=== PATIENT | female | born 1965 | race Caucasian/White ===

== ENCOUNTER 2017-01-04 08:53 | Emergency (ER) | payer OTHER ==
[~2017-01-04] VITALS: Ht 165.1 cm; Wt 88.9 kg
[~2017-01-04 08:53] MED LIST: AMBI5TAB PO; HYOS0.129 PO; LORA-392 PO; PANT40TA3 PO; SUCR1S PO; WELLTAB39 PO
[2017-01-04 08:56] VITALS: BP 165/90; PULSE 62; RESP 16; TEMP 98.3; O2SAT 97
[2017-01-04] MEDS ORDERED: TRAM50TA PO (09:06)
--- NOTE | 2017-01-04 09:26 | PD ---
HPI Chief Complaint: Pain: Acute or Chronic Time Seen by Provider: 08:59 Travel History International Travel<30 days: No Contact w/Intl Traveler<30days: No Traveled to known affect area: No History of Present Illness HPI 51 year old female presenting with burning right foot and ankle pain for 1 week. 3 weeks ago she was barefoot and stepped on a rock, which gave her right heel pain. She had an x-ray at the time excluding fracture. The heel pain resolved. Starting 1 week ago she began having lateral right foot and ankle pain. The pain is worse when she initially gets up to walk after sitting for a prolonged period of time. She is able to bear weight and walk. Associated symptoms include mild swelling in the morning. She denies fever, chills, rash, or other trauma to the area. She is taking Tramadol for pain relief. PFSH Past Medical History Hx Anticoagulant Therapy: No Anxiety: Yes Depression: Yes Cancer: No Cardiovascular Problems: No Diabetes: No Diverticulitis: Yes Endocrine: No GERD: Yes Genitourinary: No Immune Disorder: No Musculoskeletal: No Neurologic: No Psychiatric: Yes Reproductive: No Respiratory: No Tetanus Vaccination: < 5 Years Influenza Vaccination: Yes ?: Not Menopausal: Yes : 3 Para: 3 Past Surgical History Abdominal Surgery: Yes (GASTRIC BYPASS) Section: Yes (x3) Other Surgery: Yes (gastric bypass surgery 2006) Social History Alcohol Use: Yes (occ) Tobacco Use: No Substance Use: No Allergies-Medications (Allergen,Severity, Reaction): Coded Allergies: No Known Allergies (Unverified , 01/04/17) Reported Meds & Prescriptions Reported Meds & Active Scripts Active Sucralfate Liq (Sucralfate) 1 Gm/10 Ml Shakila 1 Gm PO ACHS 30 Days Pantoprazole (Pantoprazole Sodium) 40 Mg Tab 40 Mg PO Q12HR 30 Days Ambien (Zolpidem Tartrate) 5 Mg Tab 5 Mg PO HS PRN Reported Tramadol (Tramadol HCl) 50 Mg Tab 100 Mg PO DIRECTED PRN Ativan (Lorazepam) 0.5 Mg Tab 0.25 Mg PO BID PRN Wellbutrin Xl 24 HR (Bupropion HCl) 300 Mg Tab 300 Mg PO DAILY Review of Systems Except as stated in HPI: all other systems reviewed are Neg General / Constitutional: No: Fever, Chills Musculoskeletal: Positive: Edema (mild right ankle swelling), Pain (right ankle and foot pain), No: Weakness Skin: No Rash Neurologic: No: Weakness Physical Exam Narrative GENERAL: Well nourished, well developed. SKIN: Warm and dry. HEAD: Atraumatic. Normocephalic. NECK: Trachea midline. No JVD. CARDIOVASCULAR: Regular rate and rhythm. RESPIRATORY: No accessory muscle use. Clear to auscultation. Breath sounds equal bilaterally. GASTROINTESTINAL: Abdomen soft, non-tender, nondistended. Hepatic and splenic margins not palpable. MUSCULOSKELETAL: Extremities without clubbing, cyanosis. No obvious deformities. Mild swelling over right lateral malleolus. Full range of motion in bilateral ankles. Tenderness to palpation over lateral malleolus and anterior talofibular ligament. No joint laxity. Remainder of the extremities are atraumatic. NEUROLOGICAL: Awake and alert. No obvious cranial nerve deficits. Motor grossly within normal limits. Five out of 5 muscle strength in the arms and legs. Normal speech. Data Data Last Documented VS Vital Signs Date Time Temp Pulse Resp B/P Pulse Ox O2 Delivery O2 Flow Rate FiO2 01/04/17 08:56 98.3 62 16 165/90 97 Orders Luis Bandage (01/04/17 09:26) MDM Medical Decision Making Medical Screen Exam Complete: Yes Emergency Medical Condition: Yes Differential Diagnosis Most likely right ankle sprain or strain Fracture considered but not likely clinically Narrative Course Patient roomed emergency department, at this time she is clinically excludable by [place] ankle rules. Further the patient is already had imaging is negative. She's been having pain for 3 weeks. Discussed that I degree ankle sprains may take several weeks to heal 6 maybe even 8 weeks. Discussed if her pain persists and is follow-up with a primary care physician for consideration of an MRI. Patient states she has an appointment with her primary care physician but states leaving on vacation 2 days later so she wanted to get checked today. Discussed with her there is no indication for emergent MRI at this time and she will likely require preauthorization. She verbalizes understanding and agreement. 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 I think is reasonable for her to return to work because she does not do any heavy lifting. Discussed symptomatic management with [facility] therapy and returned ED criteria. Diagnosis Primary Impression: Ankle sprain Patient Instructions: General Instructions, [facility]ICE Therapy (GEN) Additional Instructions: Call your primary care physician for an earlier appointment. Take Tylenol as needed for pain. Disposition: 01 DISCHARGE HOME Condition: Stable Alexi Luz MD Jan 04, 2017 09:26
== END 2017-01-04 09:51 | disposition home or self-care (01) ==
LOC: PHED 08:53
DX: S93.401D Sprain of unspecified ligament of right ankle, subsequent encounter (principal); Z86.59 Personal history of other mental and behavioral disorders; Z87.19 Personal history of other diseases of the digestive system; X58.XXXD Exposure to other specified factors, subsequent encounter
CPT/HCPCS: 99282

== ENCOUNTER 2017-10-14 06:21 | Observation (INO) | payer OTHER ==
[2017-10-14] VITALS (9 sets, daily range): BP systolic 118–164; BP diastolic 77–97; PULSE 57–98; RESP 16–20; TEMP 97.1–98.2; O2SAT 95–98
[~2017-10-14] VITALS: Ht 165.1 cm; Wt 87.3 kg
[~2017-10-14 06:21] MED LIST changes: -HYOS0.129 PO; +TRAM50TA PO
[2017-10-14] MEDS ORDERED: SODIUM CHLORIDE 0.9% FLUSH 10 ML FLUSH IVF PRN (06:45)
--- NOTE | 2017-10-14 06:47 | PD ---
HPI Chief Complaint: Palpitations Time Seen by Provider: 06:29 Travel History International Travel<30 days: No Contact w/Intl Traveler<30days: No Traveled to known affect area: No History of Present Illness HPI 52-year-old female with no significant past medical history other than depression presents to the emergency room complaining of palpitations that happens on and off for the last 4 weeks. This morning patient woke up with similar symptoms along with numbness in both arms and occasional headaches. Patient denies any shortness of breath, nausea, vomiting, abdominal pain, weakness, fever or chills. PFSH Past Medical History Hx Anticoagulant Therapy: No Anxiety: Yes Depression: Yes Cancer: No Cardiovascular Problems: No Diabetes: No Diverticulitis: Yes Endocrine: No GERD: Yes Genitourinary: No Immune Disorder: No Musculoskeletal: No Neurologic: No Psychiatric: Yes Reproductive: No Respiratory: No ?: Not Menopausal: Yes : 3 Para: 3 Past Surgical History Abdominal Surgery: Yes (GASTRIC BYPASS) Section: Yes (x3) Other Surgery: Yes (gastric bypass surgery 2006) Social History Alcohol Use: Yes (occ) Tobacco Use: No Substance Use: No Allergies-Medications (Allergen,Severity, Reaction): Coded Allergies: No Known Allergies (Unverified , 01/04/17) Reported Meds & Prescriptions Reported Meds & Active Scripts Active Sucralfate Liq (Sucralfate) 1 Gm/10 Ml Shakila 1 Gm PO ACHS 30 Days Pantoprazole (Pantoprazole Sodium) 40 Mg Tab 40 Mg PO Q12HR 30 Days Reported Ativan (Lorazepam) 0.5 Mg Tab 0.25 Mg PO BID PRN Wellbutrin Xl 24 HR (Bupropion HCl) 300 Mg Tab 300 Mg PO DAILY Review of Systems Except as stated in HPI: all other systems reviewed are Neg General / Constitutional: No: Fever, Chills Eyes: No: Blurred Vision, Redness, Pain HENT: No: Rhinorrhea, Congestion, Neck Stiffness, Neck Pain, Earache Cardiovascular: Positive: Palpitations Respiratory: No: Cough, Shortness of Breath, Wheezing Gastrointestinal: No: Nausea, Vomiting, Diarrhea, Abdominal Pain, Hematochezia , Constipation Genitourinary: No: Dysuria Musculoskeletal: No: Myalgias Skin: No Rash, No Hives Neurologic: Positive: Headache, Paresthesia Psychiatric: Positive: Anxiety, Depression Physical Exam Narrative Vital Signs Date Time Temp Pulse Resp B/P (MAP) Pulse Ox O2 Delivery O2 Flow Rate FiO2 10/14/17 06:30 92 16 144/91 (108) 97 10/14/17 06:25 98.2 98 18 134/83 (100) 95 GENERAL: Patient is alert and oriented -3 SKIN: Focused skin assessment warm/dry. HEAD: Atraumatic. Normocephalic. EYES: Pupils equal and round. No scleral icterus. No injection or drainage. ENT: No nasal bleeding or discharge. Mucous membranes pink and moist. NECK: Trachea midline. No JVD. CARDIOVASCULAR: Regular rate and rhythm. No murmur appreciated. RESPIRATORY: No accessory muscle use. Clear to auscultation. Breath sounds equal bilaterally. GASTROINTESTINAL: Abdomen soft, non-tender, nondistended. Hepatic and splenic margins not palpable. MUSCULOSKELETAL: No obvious deformities. No clubbing. No cyanosis. No edema. NEUROLOGICAL: Awake and alert. No obvious cranial nerve deficits. Motor grossly within normal limits. Normal speech. PSYCHIATRIC: Appropriate mood and affect; insight and judgment normal. Data Data Last Documented VS Vital Signs Date Time Temp Pulse Resp B/P (MAP) Pulse Ox O2 Delivery O2 Flow Rate FiO2 10/14/17 06:35 18 97 10/14/17 06:30 92 144/91 (108) 10/14/17 06:25 98.2 Orders Orders Electrocardiogram (10/14/17 ) Electrocardiogram (10/14/17 06:42) Basic Metabolic Panel (Bmp) (10/14/17 06:42) Ckmb (Isoenzyme) Profile (10/14/17 06:42) Complete Blood Count With Diff (10/14/17 06:42) Magnesium (Mg) (10/14/17 06:42) Prothrombin Time / Inr (Pt) (10/14/17 06:42) Act Partial Throm Time (Ptt) (10/14/17 06:42) Troponin I (10/14/17 06:42) Ecg Monitoring (10/14/17 06:42) Bilateral Bp Monitoring (10/14/17 06:42) Iv Access Insert/Monitor (10/14/17 06:42) Oximetry (10/14/17 06:42) Oxygen Administration (10/14/17 06:42) Sodium Chloride 0.9% Flush (Ns Flush) (10/14/17 06:45) Chest, Pa & Lat (10/14/17 06:42) Labs Laboratory Tests Test 10/14/17 06:45 [facility] Medical Decision Making Medical Screen Exam Complete: Yes Emergency Medical Condition: Yes Medical Record Reviewed: Yes Differential Diagnosis Anxiety, palpitations, electrolyte abnormalities, ACS, Narrative Course Patient will be signed out to the next physician Dr. Desouza to follow-up labs , chest x-ray, EKG and monitor the patient during the ER course. Diagnosis Primary Impression: Palpitations Leroy Christianson MD October 14, 2017 06:47
[2017-10-14 06:54] LABS: AUTOMATED NEUTROPHIL # 2.1 TH/MM3 (1.8-7.7); BASOPHIL # 0.1 TH/MM3 (0-0.2); BASOPHIL % 1.8 % (0.0-2.0); EOSINOPHIL # 0.2 TH/MM3 (0-0.4); HEMATOCRIT 38.2 % (35.0-46.0); HEMOGLOBIN 12.8 GM/DL (11.6-15.3); LYMPH % 41.6 % (9.0-44.0); LYMPHOCYTE # 1.8 TH/MM3 (1.0-4.8); MEAN CELL VOLUME 92.9 FL (80.0-100.0); MEAN CORPUSCULAR HEMOGLOBIN 31.1 PG (27.0-34.0); MEAN CORPUSCULAR HGB CONC 33.5 % (32.0-36.0); MONO % 4.4 % (0.0-8.0); MONOCYTE # 0.2 TH/MM3 (0-0.9); NEUT % 48.2 % (16.0-70.0); PLATELET COUNT 201 TH/MM3 (150-450); RED BLOOD COUNT 4.11 MIL/MM3 (4.00-5.30); RED CELL DISTRIBUTION WIDTH 12.6 % (11.6-17.2); WHITE BLOOD COUNT 4.4 TH/MM3 (4.0-11.0)
--- NOTE | 2017-10-14 07:10 | RADRPT ---
EXAM DATE/TIME: 10/14/2017 06:50 [facility] COMPARISON: No previous studies available for comparison. INDICATIONS : Chest pain. MEDICAL HISTORY : None. SURGICAL HISTORY : None. ENCOUNTER: Initial ACUITY: 1 day PAIN SCORE: 6/10 LOCATION: Bilateral chest FINDINGS: PA and lateral views of the chest demonstrate the lungs to be symmetrically aerated without evidence of mass, infiltrate or effusion. The cardiomediastinal contours are unremarkable. Osseous structure s are intact. CONCLUSION: No acute disease. Pastor Dotson MD on October 14, 2017 at 7:08 Board Certified Radiologist. This report was verified electronically.
[2017-10-14 07:15] LABS: PROTHROMBIN TIME - PATIENT 10.3 SEC (9.8-11.6)
[2017-10-14 07:17] LABS: CHLORIDE 109 MEQ/L (98-107); SODIUM (NA) 141 MEQ/L (136-145)
[2017-10-14 07:19] LABS: CALCIUM 8.6 MG/DL (8.5-10.1)
[2017-10-14 07:20] LABS: BICARBONATE 26.5 MEQ/L (21.0-32.0); BLOOD UREA NITROGEN 11 MG/DL (7-18); GLUCOSE,RANDOM 126 MG/DL (74-106)
[2017-10-14 07:23] LABS: CREATININE 0.68 MG/DL (0.50-1.00); GLOMERULAR FILTRATION RATE 92 ML/MIN (>89)
[2017-10-14 07:28] LABS: TROPONIN I LESS THAN 0.02 NG/ML (0.02-0.05)
--- NOTE | 2017-10-14 07:33 | PD ---
Data Data Last Documented VS Vital Signs Date Time Temp Pulse Resp B/P (MAP) Pulse Ox O2 Delivery O2 Flow Rate FiO2 10/14/17 07:03 132/85 (101) 118/77 (91) 10/14/17 06:55 97 Room Air 10/14/17 06:55 16 10/14/17 06:55 76 10/14/17 06:25 98.2 Orders Orders Electrocardiogram (10/14/17 ) Basic Metabolic Panel (Bmp) (10/14/17 06:42) Ckmb (Isoenzyme) Profile (10/14/17 06:42) Complete Blood Count With Diff (10/14/17 06:42) Magnesium (Mg) (10/14/17 06:42) Prothrombin Time / Inr (Pt) (10/14/17 06:42) Act Partial Throm Time (Ptt) (10/14/17 06:42) Troponin I (10/14/17 06:42) Ecg Monitoring (10/14/17 06:42) Bilateral Bp Monitoring (10/14/17 06:42) Iv Access Insert/Monitor (10/14/17 06:42) Oximetry (10/14/17 06:42) Oxygen Administration (10/14/17 06:42) Sodium Chloride 0.9% Flush (Ns Flush) (10/14/17 06:45) Chest, Pa & Lat (10/14/17 06:42) CKMB (10/14/17 06:45) CKMB% (10/14/17 06:45) Clindamycin (Cleocin) (10/14/17 08:00) Admit Order (Ed Use Only) (10/14/17 ) Truck Driver Rubbish Collector / Telemetry FERDINAND.Q8H (10/14/17 08:07) Vital Signs (Adult) Q4H (10/14/17 08:07) Diet Npo (10/14/17 Breakfast) Activity Bed Rest (10/14/17 08:07) Notify Dr: Other (10/14/17 08:07) Labs Laboratory Tests Test 10/14/17 06:45 White Blood Count 4.4 TH/MM3 Red Blood Count 4.11 MIL/MM3 Hemoglobin 12.8 GM/DL Hematocrit 38.2 % Mean Corpuscular Volume 92.9 FL Mean Corpuscular Hemoglobin 31.1 PG Mean Corpuscular Hemoglobin Concent 33.5 % Red Cell Distribution Width 12.6 % Platelet Count 201 TH/MM3 Mean Platelet Volume 8.0 FL Neutrophils (%) (Auto) 48.2 % Lymphocytes (%) (Auto) 41.6 % Monocytes (%) (Auto) 4.4 % Eosinophils (%) (Auto) 4.0 % Basophils (%) (Auto) 1.8 % Neutrophils # (Auto) 2.1 TH/MM3 Lymphocytes # (Auto) 1.8 TH/MM3 Monocytes # (Auto) 0.2 TH/MM3 Eosinophils # (Auto) 0.2 TH/MM3 Basophils # (Auto) 0.1 TH/MM3 CBC Comment DIFF FINAL Differential Comment Prothrombin Time 10.3 SEC Prothromb Time International Ratio 1.0 RATIO Activated Partial Thromboplast Time 24.0 SEC Blood Urea Nitrogen 11 MG/DL Creatinine 0.68 MG/DL Random Glucose 126 MG/DL Calcium Level 8.6 MG/DL Magnesium Level 2.0 MG/DL Sodium Level 141 MEQ/L Potassium Level 5.1 MEQ/L Chloride Level 109 MEQ/L Carbon Dioxide Level 26.5 MEQ/L Anion Gap 6 MEQ/L Estimat Glomerular Filtration Rate 92 ML/MIN Total Creatine Kinase 231 U/L Creatine Kinase MB 2.9 NG/ML Creatine Kinase MB % 1.3 % Troponin I LESS THAN 0.02 NG/ML [facility] Medical Record Reviewed: Yes Supervised Visit with ADIEL: No Narrative Course CBC & BMP Diagram 10/14/17 06:45 Calcium Level 8.6, Magnesium Level 2.0 Last Impressions Chest X-Ray 10/14/17 0642 Signed Impressions: Service Date/Time: Saturday, October 14, 2017 06:50 - CONCLUSION: No acute disease. Pastor Dotson MD Presentation is concerning for anginal equivalent and a stress test is considered most in keeping with the current guidelines. Discussed with Dr. Ramirez. Upon reviewing the blood pressures on record here we have about 15 measurements with a systolic and diastolic hypertension dating back a few years prior. Patient has seen her primary care provider, via an INTERIOR DESIGN COORDINATOR, and has not received antihypertensives. 5 mg amlodipine daily prescription prescribed for the patient by the undersigned. Diagnosis Primary Impression: Palpitations Additional Impressions: Anginal equivalent Hypertension Qualified Codes: I10 - Essential (primary) hypertension Admitting Information Admitting Physician Requests: Observation Scripts Amlodipine (Amlodipine) 5 Mg Tab 5 MG PO DAILY for Blood Pressure Management, #30 TAB 0 Refills Prov: Tom Desouza MD 10/14/17 Tom Desouza MD October 14, 2017 07:32
[2017-10-14] MEDS ORDERED: CLINDAMYCIN 150 MG CAP PO ONE (08:00)
[2017-10-14] MEDS ORDERED: AMLO5TAB2 PO ×2 (08:11→15:33)
[2017-10-14] MEDS ORDERED: ACETAMINOPHEN 500 MG CPLT PO PRN (08:45)
[2017-10-14] MEDS ORDERED: MORPHINE SULFATE 4 MG/ML INJ IV PUSH PRN (08:45)
[2017-10-14] MEDS ORDERED: SODIUM CHLORIDE 0.9% FLUSH 10 ML FLUSH IV FLUSH PRN (08:45)
[2017-10-14] MEDS ORDERED: NITROGLYCERIN 0.4 MG SL 25 TABS/BTL SL PRN (08:45)
[2017-10-14] MEDS ORDERED: ASPIRIN 325 MG TAB PO SCH (09:00)
[2017-10-14] MEDS ORDERED: SODIUM CHLORIDE 0.9% FLUSH 10 ML FLUSH IV FLUSH SCH (09:00)
[2017-10-14] MEDS ORDERED: ENOXAPARIN SODIUM 30 MG/0.3 ML SYRINGE SQ SCH (10:00)
[2017-10-14 10:50] LABS: TROPONIN I LESS THAN 0.02 NG/ML (0.02-0.05)
[2017-10-14] MEDS ORDERED: SODIUM CHLOR 0.9% 1000 ML INJ 1,000 ML IV SCH (11:00)
--- NOTE | 2017-10-14 11:40 | HHI.HP ---
HPI Service [facility] Primary Care Physician Racquel Beach MD Admission Diagnosis Anginal Equivalents; HTN Diagnoses: (1) Chest pain (2) Palpitations Chief Complaint: Chest pain Travel History International Travel<30 Days: No Contact w/Intl Traveler <30 Da: No Traveled to Known Affected Are: No History of Present Illness This is a 52-year-old female patient with a known medical history of hypertension and GERD who presented to the ED with complaints of chest pain and bilateral arm numbness. Patient states she woke up in the middle the night feeling like her heart was racing and associated bilateral upper extremity numbness. Patient does state that she has been having the symptoms for roughly 3 months now almost on a daily basis, they come and go with no known aggravating or relieving factors. Patient denies any associated nausea, vomiting, diaphoresis or shortness of breath with these episodes. She does state that she took her blood pressure and it was mildly elevated with a systolic in the 140s and diastolic over 100s. Patient denies any recent illness including fever, chills, cough, headaches, shortness of breath, abdominal pain, nausea, vomiting, diarrhea dysuria. Family medical history significant for mother having an DC and need for CABG in her 60s. Patient did see her primary care doctor within the last month, blood work was performed which was reportedly unremarkable. Patient's blood pressure was mildly elevated but was not placed on any hypertensive medications at the time. Lipid panel was reportedly unremarkable as well. Patient works as a [employer], states that she has increased stress and a physically demanding work environment. Review of Systems Constitutional: DENIES: Fever, Chills Eyes: DENIES: Diplopia Respiratory: DENIES: Cough Cardiovascular: COMPLAINS OF: Chest pain, Palpitations Gastrointestinal: DENIES: Abdominal pain, Black stools, Bloody stools, Constipation, Diarrhea, Nausea, Vomiting Musculoskeletal: DENIES: Joint pain Hematologic/lymphatic: DENIES: Bruising Psychiatric: DENIES: Anxiety Except as stated in HPI: all other systems reviewed are Neg Past Family Social History Past Medical History Hypertension GERD Anxiety Past Surgical History 3 Gastric bypass 2006 Reported Medications Active Amlodipine (Amlodipine Besylate) 5 Mg Tab 5 Mg PO DAILY Sucralfate Liq (Sucralfate) 1 Gm/10 Ml Shakila 1 Gm PO ACHS 30 Days Pantoprazole (Pantoprazole Sodium) 40 Mg Tab 40 Mg PO Q12HR 30 Days Reported Ativan (Lorazepam) 0.5 Mg Tab 0.25 Mg PO BID PRN Wellbutrin Xl 24 HR (Bupropion HCl) 300 Mg Tab 300 Mg PO DAILY Allergies: Coded Allergies: No Known Allergies (Unverified Allergy, Unknown, 10/14/17) Active Ordered Medications Current Medications Medications (Trade) Dose Ordered Sig/Vern Route Start Time Stop Time Status Last Admin (NS Flush) 2 ml UNSCH PRN IVF 10/14/17 06:45 (NS Flush) 2 ml UNSCH PRN IV FLUSH 10/14/17 08:45 (NS Flush) 2 ml BID IV FLUSH 10/14/17 09:00 (Tylenol) 500 mg Q4H PRN PO 10/14/17 08:45 (Morphine Inj) 2 mg Q4H PRN IV PUSH 10/14/17 08:45 (Nitrostat Sl) 0.4 mg Q5M PRN SL 10/14/17 08:45 (Aspirin) 325 mg DAILY PO 10/14/17 09:00 (Lovenox Inj) 30 mg Q24H SQ 10/14/17 10:00 Sodium Chloride 1,000 ml @ 84 mls/hr [id number] IV 10/14/17 11:00 Family History Paternal medical history significant for CABG in her 60s. Social History Patient denies any current or previous tobacco use. Admits to drinking 1 alcoholic drink monthly. Denies any illicit drug use. Physical Exam Vital Signs Vital Signs Date Time Temp Pulse Resp B/P (MAP) Pulse Ox O2 Delivery O2 Flow Rate FiO2 10/14/17 09:39 97.1 63 20 142/96 (111) 95 10/14/17 09:20 10/14/17 08:35 72 16 144/92 (109) 97 Room Air 10/14/17 07:35 74 16 134/93 (107) 98 Room Air 10/14/17 07:03 132/85 (101) 118/77 (91) 10/14/17 06:55 97 Room Air 10/14/17 06:55 16 97 Room Air 10/14/17 06:55 76 16 97 Room Air 10/14/17 06:35 18 97 10/14/17 06:30 92 16 144/91 (108) 97 10/14/17 06:25 98.2 98 18 134/83 (100) 95 Physical Exam GENERAL: Well-developed, well-nourished patient in [facility]. SKIN: Warm and dry. No rash. HEAD: Normocephalic. Atraumatic. EYES: Pupils equal and round. No scleral icterus. No injection or drainage. ENT: No nasal bleeding or discharge. Mucous membranes pink and moist. NECK: Supple. Trachea midline. CARDIOVASCULAR: Regular rate and rhythm. S1, S2 noted. No murmur appreciated. No chest pain to palpation. RESPIRATORY: No accessory muscle use. Clear to auscultation. Breath sounds equal bilaterally. GASTROINTESTINAL: Abdomen soft, non-tender, nondistended. Normoactive bowel sounds x4. MUSCULOSKELETAL: No obvious deformities. Extremities without clubbing, cyanosis , or edema. NEUROLOGICAL: Awake and alert. No obvious cranial nerve deficits. Motor grossly within normal limits. 5/5 muscle strength in bilateral upper and lower extremities. Normal speech. PSYCHIATRIC: Appropriate mood and affect; insight and judgment normal. Laboratory Laboratory Tests Test 10/14/17 06:45 10/14/17 10:00 White Blood Count 4.4 Red Blood Count 4.11 Hemoglobin 12.8 Hematocrit 38.2 Mean Corpuscular Volume 92.9 Mean Corpuscular Hemoglobin 31.1 Mean Corpuscular Hemoglobin Concent 33.5 Red Cell Distribution Width 12.6 Platelet Count 201 Mean Platelet Volume 8.0 Neutrophils (%) (Auto) 48.2 Lymphocytes (%) (Auto) 41.6 Monocytes (%) (Auto) 4.4 Eosinophils (%) (Auto) 4.0 Basophils (%) (Auto) 1.8 Neutrophils # (Auto) 2.1 Lymphocytes # (Auto) 1.8 Monocytes # (Auto) 0.2 Eosinophils # (Auto) 0.2 Basophils # (Auto) 0.1 CBC Comment DIFF FINAL Differential Comment Prothrombin Time 10.3 Prothromb Time International Ratio 1.0 Activated Partial Thromboplast Time 24.0 Blood Urea Nitrogen 11 Creatinine 0.68 Random Glucose 126 Calcium Level 8.6 Magnesium Level 2.0 Sodium Level 141 Potassium Level 5.1 Chloride Level 109 Carbon Dioxide Level 26.5 Anion Gap 6 Estimat Glomerular Filtration Rate 92 Total Creatine Kinase 231 176 Creatine Kinase MB 2.9 2.4 Creatine Kinase MB % 1.3 Troponin I LESS THAN 0.02 LESS THAN 0.02 Result Diagram: 10/14/1745 10/14/1745 Imaging Last Impressions Chest X-Ray 10/14/1742 Signed Impressions: Service Date/Time: Saturday, October 14, 2017 06:50 - CONCLUSION: No acute disease. Pastor Dotson MD Septic Shock Reassessment Septic shock perfusion: reassessment completed Caprini VTE Risk Assessment Caprini VTE Risk Assessment: No/Low Risk (score <= 1) Caprini Risk Assessment Model Point Value = 1 Point Value = 2 Point Value = 3 Point Value = 5 Age 41-60 Minor surgery BMI > 25 kg/m2 Swollen legs Varicose veins or History of unexplained or recurrent spontaneous Oral contraceptives or hormone replacement Sepsis (< 1 month) Serious lung disease, including pneumonia (< 1 month) Abnormal pulmonary function Acute myocardial infarction Congestive heart failure (< 1 month) History of inflammatory bowel disease Medical patient at bed rest Age 61-74 Arthroscopic surgery Major open surgery (> 45 min) Laparoscopic surgery (> 45 min) Malignancy Confined to bed (> 72 hours) Immobilizing plaster cast Central venous access Age >= 75 History of VTE Family history of VTE Factor V Leiden Prothrombin [id number] Lupus anticoagulant Anticardiolipin antibodies Elevated serum homocysteine Heparin-induced thrombocytopenia Other congenital or acquired thrombophilia Stroke (< 1 month) Elective arthroplasty Hip, pelvis, or leg fracture Acute spinal cord injury (< 1 month) Prophylaxis Regimen Total Risk Factor Score Risk Level Prophylaxis Regimen 0-1 Low Early ambulation 2 Moderate Order ONE of the following: *Sequential Compression Device (SCD) *Heparin 5000 units SQ BID 3-4 Higher Order ONE of the following medications: *Heparin 5000 units SQ TID *Enoxaparin/Lovenox 40 mg SQ daily (WT < 150 kg, CrCl > 30 mL/min) *Enoxaparin/Lovenox 30 mg SQ daily (WT < 150 kg, CrCl > 10-29 mL/min) *Enoxaparin/Lovenox 30 mg SQ BID (WT < 150 kg, CrCl > 30 mL/min) AND/OR *Sequential Compression Device (SCD) 5 or more Highest Order ONE of the following medications: *Heparin 5000 units SQ TID (Preferred with Epidurals) *Enoxaparin/Lovenox 40 mg SQ daily (WT < 150 kg, CrCl > 30 mL/min) *Enoxaparin/Lovenox 30 mg SQ daily (WT < 150 kg, CrCl > 10-29 mL/min) *Enoxaparin/Lovenox 30 mg SQ BID (WT < 150 kg, CrCl > 30 mL/min) AND *Sequential Compression Device (SCD) Assessment and Plan Problem List: (1) Chest pain ICD Code: R07.9 - Chest pain, unspecified Plan: Patient has been admitted to the chest pain center for observation. Serial EKGs and serial troponins were ordered for ruling out ACS purposes. Initial 2 troponins flat. Await third cardiac enzyme. EKG reviewed showing sinus rhythm sinus bradycardia, controlled heart rate, no ST changes to indicate ischemia. Chest pain has now resolved. Blood pressure is well controlled, mildly elevated on presentation. Aspirin given daily. Nitroglycerin available for chest pain as needed. Morphine IV available per pain scale. N.p.o. for now. Patient will undergo a cardiac treadmill stress test to further rule out any ischemia. Further hospitalization treatment plan will depend on results. Patient stable at this time and agreeable to plan. CBC and BMP reviewed essentially unremarkable. Mildly elevated CPK, IV fluids started. Chest x-ray reviewed showing no acute disease. (2) Palpitations ICD Code: R00.2 - Palpitations Status: Acute Plan: See plan above. Assessment and Plan Patient underwent cardiac treadmill stress test, images reviewed by radiologist on-call, normal examination, no ischemia. Patient updated about results. Will discharge today home for follow-up with PCP. Patient encouraged to return to ED if chest pain worsens or symptoms persist. Patient is stable at this time and agreeable to plan. High blood pressure throughout hospitalization, given amlodipine, follow-up with PCP to manage hypertension. Letha Horta October 14, 2017 11:40
[2017-10-14] MEDS ORDERED: SUCRALFATE 1 GM/10 ML CUP PO SCH (12:00)
[2017-10-14] MEDS ORDERED: amLODIPine BESYLATE 5 MG TAB PO ONE (13:15)
[2017-10-14 13:29] LABS: TROPONIN I LESS THAN 0.02 NG/ML (0.02-0.05)
--- NOTE | 2017-10-14 13:36 | TR ---
Date Performed: 10/14/2017 Time Performed: 12:06:25 DOCTOR: Julio Cardona DRUG LIST: CLINICAL HISTORY: REASON FOR TEST: Chest pain REASON FOR ENDING: OBSERVATION: CONCLUSION: Jhonatan protocol performed, test stopped 2/2 reaching target heart rate and leg fatigu e. Good exercise tolerance. No reproducible chest pain. Good BP response. Recovery quick and unremark able. No ST changes to indicate ischemia. Target [id number] Target HR Svhutqez=231.0% Maximum QV=835/98 T otal Exercise Time=7:00 COMMENTS: Conclusion: Normal treadmill exercise. No evidence of ischemia.
--- NOTE | 2017-10-14 13:39 | EKG ---
Date Performed: 10/14/2017 Time Performed: 06:35:15 PTAGE: 52 years EKG: Sinus rhythm POSSIBLE LEFT ATRIAL ENLARGEMENT BORDERLINE ECG NO PREVIOUS TRACING DOCTOR: Julio Cardona Interpretating Date/Time 10/14/2017 13:38:47
--- NOTE | 2017-10-14 13:39 | EKG ---
Date Performed: 10/14/2017 Time Performed: 09:01:52 PTAGE: 52 years EKG: SINUS BRADYCARDIA BORDERLINE ECG PREVIOUS TRACING : 10/14/2017 06.35 Since previous tracing, no significant change noted DOCTOR: Julio Cardona Interpretating Date/Time 10/14/2017 13:38:29
--- NOTE | 2017-10-14 14:01 | EKG ---
Date Performed: 10/14/2017 Time Performed: 12:44:32 PTAGE: 52 years EKG: Sinus rhythm NORMAL ECG PREVIOUS TRACING : 10/14/2017 09.01 Since previous tracing, no significant change noted DOCTOR: Julio Cardona Interpretating Date/Time 10/14/2017 13:59:31
--- NOTE | 2017-10-14 15:32 | HHI.DCPOC ---
Discharge Care Plan Diagnosis: (1) Chest pain (2) Palpitations (3) Hypertension Goals to Promote Your Health * To prevent worsening of your condition and complications * To maintain your health at the optimal level Directions to Meet Your Goals Take your medications as prescribed Follow your dietary instruction Follow activity as directed Keep your appointments as scheduled Take your immunizations and boosters as scheduled If your symptoms worsen call your PCP, if no PCP go to Urgent Care Center or Emergency Room Smoking is Dangerous to Your Health. Avoid second hand smoke Call the 24-hour hour crisis hotline for domestic abuse at [facility] October 14, 2017 15:32
[2017-10-14] MEDS ORDERED: PANTOPRAZOLE SOD 40 MG DELAYED RELEASE TAB PO SCH (21:00)
[2017-10-15] MEDS ORDERED: buPROPion HCL 150 MG EXTENDED RELEASE TAB PO SCH (09:00)
[2017-10-15] MEDS ORDERED: amLODIPine BESYLATE 5 MG TAB PO SCH (09:00)
== END 2017-10-14 19:11 | disposition home or self-care (01) ==
LOC: PHED 06:21 → PHEDA 08:08 → PH3A 09:22
PROVIDERS: ADMIT Hospitalist; ATTEND Hospitalist
DX: R07.89 Other chest pain (principal); R00.1 Bradycardia, unspecified; R74.8 Abnormal levels of other serum enzymes; R00.2 Palpitations; R20.0 Anesthesia of skin; I10 Essential (primary) hypertension; K21.9 Gastro-esophageal reflux disease without esophagitis; I20.8 Other forms of angina pectoris; F41.9 Anxiety disorder, unspecified; F32.9 Major depressive disorder, single episode, unspecified; Z79.899 Other long term (current) drug therapy; Z98.84 Bariatric surgery status
CPT/HCPCS: 71046; 80048; 82550; 82552; 83735; 84484; 85025; 85610; 85730; 93005; 93017; 99285; G0378; J1650